=== PATIENT | female | born 2005 | race Caucasian/White ===

== ENCOUNTER 2024-02-21 14:57 | Outpatient (CLI) | payer OTHER, SELFPAY ==
--- NOTE | 2024-02-21 | XRR_ITS ---
PROCEDURE INFORMATION: Exam: XR Right Ankle Exam date and time: 02/21/2024 2:16 PM Age: 18 years old Clinical indication: Pain and injury or trauma; Fall; Work related; Blunt trauma; Ankle; Right; Additional info: Pain of right ankle TECHNIQUE: Imaging protocol: Radiologic exam of the right ankle. Views: 1 or 2 views. COMPARISON: CR XR knee RT 3V* [id number] 02/21/2024 2:15 PM FINDINGS: Bones/joints: Normal. Soft tissues: Normal. XR/XR ankle RT 2V [id number] IMPRESSION: No acute findings.
--- NOTE | 2024-02-21 | XRR_ITS ---
PROCEDURE INFORMATION: Exam: XR Right Knee Exam date and time: 02/21/2024 2:15 PM Age: 18 years old Clinical indication: Pain and injury or trauma; Fall; Work related; Blunt trauma; Knee; Right; Additional info: Pain of right knee TECHNIQUE: Imaging protocol: Radiologic exam of the right knee. Views: 3 views. COMPARISON: No relevant prior studies available. FINDINGS: Bones/joints: Normal. Soft tissues: Normal. XR/XR knee RT 3V* [id number] IMPRESSION: No acute findings.
== END 2024-02-21 14:58 | disposition home or self-care (01) ==
LOC: RADOUTREAD 15:00
PROVIDERS: Visit Provider Electrodiagnostic Medicine
DX: M25.562 Pain in left knee (principal)

== ENCOUNTER → 2025-01-30 14:17 | Outpatient (BNVA) | payer OTHER, SELFPAY | PROVIDERS: PCP Family Medicine; Visit Provider Family Medicine | DX: Z00.00 Encounter for general adult medical examination without abnormal findings (principal) | CPT/HCPCS: 80053; 80061; 83036; 84443; 85025 ==